=== PATIENT | female | born 1965 | race Two or more races ===

== ENCOUNTER 2017-10-06 02:33 | Emergency (ER) | payer OTHER ==
[~2017-10-06] VITALS: Ht 154.9 cm; Wt 59.0 kg
[2017-10-06] MEDS ORDERED: [UNRECOGNIZED DRUG - OTHER] (02:46)
[2017-10-06] MEDS ORDERED: [UNRECOGNIZED DRUG - OTHER] (02:47)
[2017-10-06] MEDS ORDERED: KETO10TA2 PO (04:54)
== END 2017-10-06 14:38 | disposition home or self-care (01) ==
LOC: ER 02:33
DX: S93.492A Sprain of other ligament of left ankle, initial encounter (principal); W10.8XXA Fall (on) (from) other stairs and steps, initial encounter; Y93.89 Activity, other specified; Y92.59 Other trade areas as the place of occurrence of the external cause; Y99.8 Other external cause status